=== PATIENT | male | born 1930 | race American Indian/Alaskan Native ===

== ENCOUNTER 2018-08-19 12:53 | Emergency (ER) | payer SELFPAY ==
[2018-08-19 13:25] VITALS: O2SAT 98
[2018-08-19] MEDS ORDERED: Alum-Mag Hydrox-Simethicone Susp (30 mL) PO STA (13:39)
[2018-08-19] MEDS ORDERED: Atrop/Hyosc/Scopal/PB Elixir (120 ml) PO STA (13:39)
[2018-08-19] MEDS ORDERED: Sodium Chloride 0.9% 1,000 ML IV STA (13:39)
--- NOTE | 2018-08-19 13:44 | ED PDOC ---
Arrival/HPI - History of Present Illness Narrative History of Present Illness (Text): 08/19/18 13:41 Pt is an 88 yo male with a PMH of HTN, HLD and FL presents to the ED complaining of "weakness". Pt is a poor historian, pt states he had been having stomach upset since this morning. He was with his friend when he slumped forward and asked to be brought to the ED. Pt has no complaints other than weakness. Time/Duration: 4-6 hours Symptom Onset: Gradual <Alistair Vang - Last Filed: 08/19/18 17:08> <Tim Nayak DO - Last Filed: 08/19/18 19:57> - General Chief Complaint: Weakness/Neurological Deficit Time Seen by Provider: 08/19/18 12:57 Past Medical History - Infectious Disease Hx of Infectious Diseases: None - Cardiac Hx Cardiac Disorders: No - Psychiatric Hx Substance Use: No <Alistair Vang - Last Filed: 08/19/18 17:08> Family/Social History Family/Social History: Unknown Family HX Smoking Status: Unknown If Ever Smoked Hx Alcohol Use: No Hx Substance Use: No <Alistair Vang - Last Filed: 08/19/18 17:08> Allergies/Home Meds <Alistair Vang - Last Filed: 08/19/18 17:08> <Tim Nayak DO - Last Filed: 08/19/18 19:57> Allergies/Adverse Reactions: Allergies No Known Allergies Allergy (Verified 08/19/18 13:17) Physical Exam Vital Signs Reviewed: Yes Vital Signs Temp Pulse Resp BP Pulse Ox 08/19/18 12:53 97.7 F 67 18 124/52 L 98 Temperature: Afebrile Blood Pressure: Normal Pulse: Regular Respiratory Rate: Normal Appearance: Positive for: Well-Appearing Mental Status: Positive for: Alert and Oriented X 3 - Systems Exam Head: Present: Atraumatic, Normocephalic Pupils: Present: PERRL Extroacular Muscles: Present: EOMI Conjunctiva: Present: Normal Mouth: Present: Moist Mucous Membranes Neck: Present: Normal Range of Motion Respiratory/Chest: Present: Clear to Auscultation, Good Air Exchange. No: Respiratory Distress, Accessory Muscle Use Cardiovascular: Present: Regular Rate and Rhythm, Normal S1, S2 Abdomen: Present: Normal Bowel Sounds. No: Tenderness, Distention Upper Extremity: Present: Normal Inspection Lower Extremity: Present: Normal Inspection Neurological: Present: GCS=15, CN II-XII Intact Skin: Present: Warm, Dry Psychiatric: Present: Alert, Oriented x 3 <Alistair Vangron - Last Filed: 08/19/18 17:08> Vital Signs Temp Pulse Resp BP Pulse Ox 08/19/18 17:00 97.5 F L 70 16 144/79 98 08/19/18 12:53 97.7 F 67 18 124/52 L 98 <Tim Nayak DO - Last Filed: 08/19/18 19:57> Medical Decision Making ED Course and Treatment: 08/19/18 13:45 Lipase zofran pepcid NS100 troponin CTAP IV contrast Pt denies chest pain, shortness of breath, or fever/chills. Pt seen, examined, assessment and plan discussed with Dr Malini Vang PGY1 08/19/18 16:14 <Alistair Vang - Last Filed: 08/19/18 17:08> - Lab Interpretations Lab Results: Troponin I 0.06 ng/mL 08/19/18 14:10 Total Bilirubin 0.9 mg/dL (0.2-1.3) 08/19/18 14:10 AST 31 U/L (17-59) 08/19/18 14:10 ALT 15 U/L (7-56) 08/19/18 14:10 Alkaline Phosphatase 61 U/L (38-126) 08/19/18 14:10 Total Protein 7.7 g/dL (5.8-8.3) 08/19/18 14:10 Albumin 4.3 g/dL (3.0-4.8) 08/19/18 14:10 Globulin 3.4 gm/dL 08/19/18 14:10 Albumin/Globulin Ratio 1.2 (1.1-1.8) 08/19/18 14:10 Amylase 96 U/L (35-125) 08/19/18 14:10 Lipase 171 U/L (23-300) 08/19/18 14:10 - RAD Interpretation Radiology Orders: 08/19/18 13:39 ABD & PELVIS IV CONTRAST ONLY [CT] Stat - Medication Orders Current Medication Orders: Discontinued Medications Al Hydrox/Mg Hydrox/Simethicone (Maalox Plus 30 Ml) 30 ml PO STAT STA Stop: 08/19/18 13:40 Last Admin: 08/19/18 14:25 Dose: 30 ml Belladonna/Phenobarbital ( Elixir) 5 ml PO STAT STA Stop: 08/19/18 13:40 Last Admin: 08/19/18 14:26 Dose: 5 ml Famotidine (Pepcid) 20 mg IVP STAT STA Stop: 08/19/18 13:40 Last Admin: 08/19/18 14:26 Dose: 20 mg IVP Administration Document 08/19/18 14:26 MR (Rec: 08/19/18 14:26 [id number]) Charges for Administration # of IVP Administrations 1 Sodium Chloride (Sodium Chloride 0.9%) 1,000 mls @ 100 mls/hr IV .Q10H STA Stop: 08/19/18 23:38 Last Admin: 08/19/18 14:25 Dose: 100 mls/hr eMAR Start Stop Document 08/19/18 14:25 MR (Rec: 08/19/18 14:25 [id number]) Intravenous Solution Start Date 08/19/18 Start Time 14:25 Ondansetron HCl (Zofran Inj) 4 mg IVP STAT STA Stop: 08/19/18 13:40 Last Admin: 08/19/18 14:25 Dose: 4 mg IVP Administration Document 08/19/18 14:25 MR (Rec: 08/19/18 14:26 [id number]) Charges for Administration # of IVP Administrations 1 <Tim Nayak DO - Last Filed: 08/19/18 19:57> - PA / [employer] ASSOCIATE / Resident Statement ELLEN has reviewed & agrees with the documentation as recorded. ELLEN has examined the patient and agrees with the treatment plan. <Tim Nayak DO - Last Filed: 08/19/18 19:57> Disposition/Present on Arrival - Present on Arrival Any Indicators Present on Arrival: No History of DVT/PE: No History of Uncontrolled Diabetes: No Urinary Catheter: No History of Decub. Ulcer: No History Surgical Site Infection Following: None - Disposition Have Diagnosis and Disposition been Completed?: Yes Disposition Time: 17:08 <Alistair Vang - Last Filed: 08/19/18 17:08> - Disposition Disposition Time: 15:40 <Tim Nayak DO - Last Filed: 08/19/18 19:57> - Disposition Diagnosis: Gastritis Disposition: HOME/ ROUTINE Condition: IMPROVED Discharge Instructions (ExitCare): Gastritis (DC) Additional Instructions: KEVIN MAHAN, thank you for letting us take care of you today. The emergency medical care you received today was directed at your acute symptoms. If you were prescribed any medication, please fill it and take as directed. It may take several days for your symptoms to resolve. Return to the Emergency Department if your symptoms worsen, do not improve, or if you have any other problems. Please contact your doctor or call one of the physicians/clinics you have been referred to that are listed on the Patient Visit Information form that is included in your discharge packet. Bring any paperwork you were given at discharge with you along with any medications you are taking to your follow up visit. Our treatment cannot replace ongoing medical care by a primary care provider outside of the emergency department. Thank you for allowing the [facility] team to be part of your care today. Follow up with your primary care doctor in 2-3 days for re-evaluation and further management. Prescriptions: Famotidine [Pepcid] 20 mg PO BID #14 tab Ondansetron ODT [Zofran ODT] 4 mg PO Q8 PRN #15 odt PRN Reason: Nausea/Vomiting Referrals: [facility] Braden Reyes, [Non-Staff] - Follow up with primary Forms: [employer] ([place])
[2018-08-19 14:37] LABS: ALB/GLOB RATIO 1.2 (1.1-1.8); ALBUMIN 4.3 g/dL (3.0-4.8); ALT/SGPT 15 U/L (7-56); AMYLASE 96 U/L (35-125); AST/SGOT 31 U/L (17-59); BLOOD UREA NITROGEN 16 mg/dL (7-21); CALCIUM 9.6 mg/dL (8.4-10.5); GFR NON-AFRICAN AMERICAN 52; LIPASE 171 U/L (23-300)
[2018-08-19 14:47] LABS: BASO # 0.01 K/mm3 (0.0-2.0); BASO % 0.1 % (0.0-3.0); EOS # 0.3 (0.0-0.7); EOS % 3.8 % (1.5-5.0); HEMOGLOBIN 14.2 g/dL (14.0-18.0); LYMPH # 1.6 (1.2-3.4); LYMPH % 20.2 % (22.0-35.0); MEAN CELL VOLUME 95.1 fl (80.0-105.0); MEAN CORPUSCULAR HEMOGLOBIN 31.6 pg (25.0-35.0); MEAN CORPUSCULAR HGB CONC 33.2 g/dl (31.0-37.0); MEAN PLATELET VOLUME 11.9 fl (7.0-11.0); MONO # 0.5 (0.1-0.6); MONO % 5.8 % (1.0-6.0); RBC 4.5 10^6/uL (3.5-6.1); RED CELL DISTRIBUTION WIDTH 13.2 % (11.5-14.5); WHITE BLOOD COUNT 7.9 10^3/uL (4.5-11.0)
[2018-08-19 14:49] LABS: TROPONIN I 0.06 ng/mL
[2018-08-19] MEDS ORDERED: Iohexol 350 MG/100 ML VIAL ONE (14:52)
--- NOTE | 2018-08-19 15:39 | CT ---
Date of service: 08/19/2018 PROCEDURE: CT Abdomen and Pelvis with contrast HISTORY: upper abdominal pain COMPARISON: None. TECHNIQUE: Contrast dose: Radiation dose: Total exam DLP = 362.09 mGy-cm. This CT exam was performed using one or more of the following dose reduction techniques: Automated exposure control, adjustment of the mA and/or kV according to patient size, and/or use of iterative reconstruction technique. FINDINGS: LOWER THORAX: Unremarkable. LIVER: Unremarkable. No gross lesion or ductal dilatation. GALLBLADDER AND BILE DUCTS: Unremarkable. PANCREAS: Unremarkable. No gross lesion or ductal dilatation. SPLEEN: Unremarkable. ADRENALS: Unremarkable. No mass. KIDNEYS AND URETERS: Unremarkable. No hydronephrosis. No solid mass. VASCULATURE: Unremarkable. No aortic aneurysm. Aortic calcification BOWEL: Unremarkable. No obstruction. No gross mural thickening. APPENDIX: Normal appendix. PERITONEUM: Unremarkable. No free fluid. No free air. LYMPH NODES: Unremarkable. No enlarged lymph nodes. BLADDER: Unremarkable. 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 IMPRESSION: No acute intra-abdominal or intrapelvic findings
[2018-08-19 17:00] VITALS: BP 144/79; PULSE 70; RESP 16; TEMP 97.5
--- NOTE | 2018-08-19 17:49 | CARD ---
APPROVED REPORT Date of service: 08/19/2018 EKG Measurement Heart [id number] <Conclusion> Normal sinus rhythm Left axis deviation Left ventricular hypertrophy with QRS widening and repolarization abnormality Cannot rule out Septal infarct, age undetermined Abnormal ECG
== END 2018-08-19 17:02 | disposition home or self-care (01) ==
LOC: MERGE 12:53 → ED 12:53
DX: K29.70 Gastritis, unspecified, without bleeding (principal); I10 Essential (primary) hypertension; E78.5 Hyperlipidemia, unspecified
CPT/HCPCS: 74177; 80053; 82150; 82550; 83615; 83690; 83735; 84484; 85025; 93005; 96374; 96375; 99285; J2405; J7030; Q9967